=== PATIENT | female | born 1985 | race Two or more races ===

== ENCOUNTER 2025-03-23 20:37 | Emergency (ER) | payer BC, OTHER ==
[~2025-03-23] VITALS: Ht 165.1 cm; Wt 78.1 kg
--- NOTE | 2025-03-23 22:22 | ED.PDOC ---
HPI Comments HPI: 39-year-old female who came to ER due to have blood pressure. Patient does have history of hypertension, takes her diltiazem daily. Was having episodes of hypertension recently despite medications, pressure taken at home was 170/107 mm Hg. Patient currently complaining of dizziness, headaches and shortness of breath Past Medical History: Hypertension Past Surgical History: Denies Social History: Denies Haley: HTN, HPI: Poor Historian. REVIEW OF SYSTEMS: CONSTITUTIONAL: Denies acute: fever, diaphoresis, chills, HEAD: Denies acute: , photophobia Eyes: Denies acute: Double vision, vision loss, eye pain, eye discharge. EARS: Denies acute: tinnitus, hearing loss, ear discharge, ear pain, THROAT: Denies acute: sore throat, swelling, difficulty swallowing , pain with swallowing, change in voice. NECK: Denies acute: neck pain, neck swelling, stiff neck. HEART: Denies acute : chest pain, palpitations, LUNGS: Denies acute: SOB, wheezing, cough, hemoptysis ABDOMEN: Denies acute: abdominal pain, Nausea, Vomiting, diarrhea, melena , hematemesis, hematochezia SKIN: Denies acute: rash, redness, lesions, itchiness. EXTREMITIES: Denies acute: calf pain, numbness, tingling, weakness, denies pain in extremity. Denies acute: Low back pain. Neuro: Denies acute: focal neurological deficit, motor or sensory focal neurological deficit, tremors, seizure like activity, confusion, change in mental status, loss of bowel or bladder function, cauda equina like symptoms. : Denies acute: dysuria, hematuria, flank pain, increase in urinary frequency. PSYCH: Denies acute: hallucination, suicidal ideation, homicidal ideation. FEMALE: Denies acute: abnormal vaginal bleeding, foul odor, unusual discharge. PHYSICAL EXAM: General: ----no----acute distress, awake and alert. Head: normocephalic, atraumatic. No raccoon's eyes, no blankenship sign. Neck: supple, trachea is midline, no swelling. Throat: Normal phonation. Eyes:, no erythema, no purulent discharge, no proptosis, no icterus. Heart: regular rate, regular rhythm, no significant murmur appreciated. Lungs: no apparent respiratory distress, Able to speak in full sentences. No wheezing, no rhonchi, no crackles. No stridors Clear to auscultation bilaterally. Abdomen: non tender to palpation, non distended, soft, no guarding, no rebound, + bowel sounds. Neuro: Awake, Alert, oriented to name, self, situation, follows commands GCS=15. Speech is normal. Skin: no petechia, no purpura, no cyanosis, non-pale, not jaundice. Lower extremities: --no - Pitting edema no deformity, no focal swelling, no calf TTP. Makes eye contact. moves all four extremities. Face: no apparent facial droop. Ambulating in the ED independently. ED COURSE: DISCLAIMER: This medical document was created using an electronic medical record system with voice recognition software and computerized dictation system. Although this document has been carefully reviewed, there might still be some phonetic and typographical errors. Occasional wrong-word or "sound-alike" substitutions may have occurred due to the inherent limitations of voice recognition software. These areas are purely typographical due to imperfections of the software programs and do not reflect any compromise in the patient's medical care. Please read the chart carefully and recognize, using context, where these substitutions have occurred. 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 Was a procedure done?: No CP Differential Dx Differential Diagnosis: HTN Essential, HTN Accelerated X-Ray, Labs, Meds, VS Vital Signs Date Time Temp Pulse Resp B/P (MAP) Pulse Ox O2 Delivery O2 Flow Rate FiO2 03/23/25 23:38 145/96 03/23/25 22:58 84 153/91 (111) 03/23/25 22:38 161/76 03/23/25 22:38 81 18 97 Room Air 03/23/25 22:38 99.6 81 18 161/76 (104) 97 99.6 03/23/25 20:39 98.0 81 16 168/102 98 98.0 Lab Test 03/23/25 23:38 03/23/25 22:32 03/23/25 21:35 Range/Units Urine Color Colorless Yellow Urine Clarity Clear Clear Urine pH 6.5 5.0-9.0 Urine Specific [place] 1.007 1.001-1.035 Urine Protein Negative Negative Urine Ketones Negative Negative Urine Blood Negative Negative /uL Urine Nitrite Negative Negative Urine Bilirubin Negative Negative Urine Urobilinogen Normal Negative mg/dL Urine Leukocyte Esterase Negative Negative /uL Urine RBC None seen 0 - 4 /hpf Urine Microscopic WBC < 1 0-5 /HPF Urine Squamous Epithelial Cells Few <5 /hpf Urine Bacteria None seen None Seen /hpf Urine Glucose Normal Normal mg/dL Troponin I High Sensitivity 3 L 3 L </=34 ng/L White Blood Count 9.8 4.4-10.8 10^3/uL Red Blood Count 4.72 4.0-5.20 10^6/uL Hemoglobin 14.4 12.2-16.2 g/dL Hematocrit 41.6 36.0-46.0 % Mean Corpuscular Volume 88.2 80.0-100.0 fL Mean Corpuscular Hemoglobin 30.4 28.0-32.0 pg Mean Corpuscular Hemoglobin Concent 34.5 32.0-36.0 g/dL Red Cell Distribution Width 13.2 11.8-14.3 % Platelet Count 305 140-450 10^3/uL Mean Platelet Volume 8.4 6.9-10.8 fL Neutrophils (%) (Auto) 57.2 37.0-80.0 % Lymphocytes (%) (Auto) 32.9 10.0-50.0 % Monocytes (%) (Auto) 7.9 0.0-12.0 % Eosinophils (%) (Auto) 1.0 0.0-7.0 % Basophils (%) (Auto) 1.0 0.0-2.0 % Neutrophils # (Auto) 5.6 1.6-8.6 10 ^3/uL Lymphocytes # (Auto) 3.2 0.4-5.4 10 ^3/uL Monocytes # (Auto) 0.8 0-1.3 10 ^3/uL Eosinophils # (Auto) 0.1 0-0.8 10 ^3/uL Basophils # (Auto) 0.1 0-0.2 10 ^3/uL Nucleated Red Blood Cells 0.1 % Sodium Level 141 136-145 mmol/L Potassium Level 3.3 L 3.5-5.1 mmol/L Chloride Level 102 98-107 mmol/L Carbon Dioxide Level 26 20-31 mmol/L Anion Gap 13 5-15 Blood Urea Nitrogen 8 L 9-23 mg/dL Creatinine 0.78 0.550-1.02 mg/dL Glomerular Filtration Rate Calc 98 >90 mL/min BUN/Creatinine Ratio 10.3 10.0-20.0 Serum Glucose 121 H 74-106 mg/dL Calcium Level 9.6 8.7-10.4 mg/dL Total Bilirubin 0.4 0.2-1.0 mg/dL Aspartate Amino Transferase (AST) 17 13-40 U/L Alanine Aminotransferase (ALT) 21 7-40 U/L Alkaline Phosphatase 99 46-116 U/L Total Protein 7.6 5.7-8.2 g/dL Albumin 4.4 3.2-4.8 g/dL Current Medications Medications (Trade) Dose Ordered Sig/Wojciech Route Start Time Stop Time Status Last Admin Nitroglycerin (Ntrostat Sublingual) 0.4 mg ONCE ONCE SL 03/23/25 21:30 03/23/25 21:31 DC 03/23/25 22:38 Potassium Chloride (Klor-Con Tablet) 40 meq ONCE ONCE PO 03/24/25 00:00 03/24/25 00:01 DC 03/24/25 00:05 Time of 1ST Reevaluation: 22:19 Reevaluation 1ST: Unchanged Time of 2ND Reevaluation: 00:43 (PATIENT REFUSED CHEST X-RAY.) Patient Education/Counseling: Diagnosis, Treatment Family Education/Counseling: Need For Follow Up SEPSIS Sepsis Screen Date sepsis recognized/suspect: Mar 23, 2025 Time Sepsis recognized/suspect: 2040 Recent Procedure: No On Antibiotic Therapy: No Respiratory Rate >20: No Heart Rate >90: No Temp<36 C (96.8 F) or >38.3 C: No SBP <90 or MAP <65 mmHG: No New Acute Mental Status Change: No Is the patient on CPAP, BIPAP,: No Physician Orders Turbo Generator Oiler (03/23/25 ) Electrocardigram (03/23/25 21:25) Chest Portable (03/24/25 00:34) Vital Signs Date Time Temp Pulse Resp B/P (MAP) Pulse Ox O2 Delivery O2 Flow Rate FiO2 03/23/25 23:38 145/96 03/23/25 22:58 84 153/91 (111) 03/23/25 22:38 161/76 03/23/25 22:38 81 18 97 Room Air 03/23/25 22:38 99.6 81 18 161/76 (104) 97 99.6 03/23/25 20:39 98.0 81 16 168/102 98 98.0 Laboratory Tests Test 03/23/25 21:35 White Blood Count 9.8 10^3/uL (4.4-10.8) Medications Medications Dose Ordered Sig/Wojciech Route Start Time Stop Time Status Last Admin Dose Admin Nitroglycerin 0.4 mg ONCE ONCE SL 03/23/25 21:30 03/23/25 21:31 DC 03/23/25 22:38 Potassium Chloride 40 meq ONCE ONCE PO 03/24/25 00:00 03/24/25 00:01 DC 03/24/25 00:05 Departure 1 Departure Time of Disposition: 00:33 Impression: Primary Impression: Hypertensive urgency Disposition: 01 HOME / SELF CARE / HOMELESS Condition: Stable Additional Instructions: Additional instructions: Please read all instructions provided in this packet carefully. You MUST follow-up with your primary care/family doctor in 1 to 2 days. If you are unable to see your primary care/family doctor, please return to our emergency room for re-assessment and re-evaluation in 1 to 2 days. Return to the emergency room here in our facility or to the nearest ER [facility] if your symptoms change or worsen. CONSULTATIONS: you MUST Follow-up for consultation as soon as possible with: Dr. starr in 1-2 days. Please call for appointment. You MUST call the consultants office yourself to make an appointment. You may need to arrange that through your insurance and/or your primary/family doctor. If you are unable to see the sr. consultant in 1 to 2 days, you must return to our emergency room (or any other ER of your choice) for re-assessment and re- evaluation. Adequate fluid hydration. Although you have been discharged from the Emergency Department, this does not mean that you have a "clean bill of health". No definitive diagnosis for your symptoms has been made today. It is possible that you are in the process of de veloping a serious illness. This is why you must return to the ED without fail if any new or worsening symptoms develop. You may benefit from an additional blood pressure medication to take for better control of your blood pressure. Please consult with the software sales representative. Monitoring blood pressure at home at least 3 times a day. Discharged With: Self Critical Care Note Critical Care Time?: No I personally scribed for CLEMENTE MENDOZA DO ([email or web address]) on 03/23/25 at 22:21. Electronically submitted by Michael Pool ([email or web address]). CLEMENTE MENDOZA DO Mar 23, 2025 22:21
[2025-03-23 22:28] LABS: Hematocrit 41.6 % (36.0-46.0); Hemoglobin 14.4 g/dL (12.2-16.2); Mean Corpuscular Hemoglobin 30.4 pg (28.0-32.0); Mean Corpuscular Volume 88.2 fL (80.0-100.0); Nucleated Red Blood Cells % 0.1 %
[2025-03-23 22:38] VITALS: RESP 18; TEMP 99.6; O2SAT 97
[2025-03-23] MEDS: NITROGLYCERIN 0.4 MG SL TAB SL ONE (22:38)
[2025-03-23 22:40] LABS: Alanine Aminotransferase 21 U/L (7-40); Albumin 4.4 g/dL (3.2-4.8); Alkaline Phosphatase 99 U/L (46-116); Anion Gap 13 (5-15); BUN/Creatinine Ratio 10.3 (10.0-20.0); Bilirubin, Total 0.4 mg/dL (0.2-1.0); Calcium 9.6 mg/dL (8.7-10.4); Carbon Dioxide 26 mmol/L (20-31); Chloride 102 mmol/L (98-107); Sodium 141 mmol/L (136-145); Total Protein 7.6 g/dL (5.7-8.2)
[2025-03-23 22:42] LABS: Blood Urea Nitrogen 8 mg/dL (9-23); Glucose 121 mg/dL (74-106); Potassium 3.3 mmol/L (3.5-5.1)
[2025-03-23 22:58] VITALS: BP 153/91; PULSE 84
[2025-03-23 23:53] LABS: Urine Protein, UAD Negative (Negative)
[2025-03-24] MEDS: POTASSIUM CHL 20 Meq TABLET PO ONE (00:05)
== END 2025-03-24 00:47 | disposition home or self-care (01) ==
LOC: ER 20:37
DX: I16.0 Hypertensive urgency (principal); Z88.2 Allergy status to sulfonamides; Z79.899 Other long term (current) drug therapy
CPT/HCPCS: 36415; 80053; 81001; 84484; 85025